=== PATIENT | male | born 2000 | race Caucasian/White ===

== ENCOUNTER 2025-05-22 17:03 | Emergency (ER) | payer OTHER | END 2025-05-22 18:45 | disposition home or self-care (01) | LOC: MW.ED 17:03 | DX: S69.91XA Unspecified injury of right wrist, hand and finger(s), initial encounter (principal); Z75.3 Unavailability and inaccessibility of health-care facilities; W22.8XXA Striking against or struck by other objects, initial encounter | CPT/HCPCS: 73130-26-RT; 73130-RT; 99283 ==